=== PATIENT | male | born 1935 | race Caucasian/White ===

== ENCOUNTER → 2017-06-14 | Outpatient (CLI) | payer OTHER | LOC: BMCIMAGING 11:28 | PROVIDERS: ATTEND Internal Medicine | DX: M26.621 Arthralgia of right temporomandibular joint (principal) ==

== ENCOUNTER 2018-07-15 15:13 | Observation (INO) | payer OTHER ==
[2018-07-15] MEDS ORDERED: NS 500 ML IV ONE (15:51)
[2018-07-15 16:02] LABS: PLATELET COUNT 148 10^3/uL (150-400)
[2018-07-15 16:14] LABS: INR 1.1 (0.83-1.16); PROTIME(PATIENT) 14.4 SEC (12.0-15.0)
--- NOTE | 2018-07-15 17:06 | EDPHY ---
H & P Time Seen by Provider: 07/15/18 15:50 HPI/ROS: HPI Sweaty, confused, possible fainting while walking earlier. 83-year-old male by ambulance. This patient reports that he was taking a walk near his house. He reports that he started feeling weak, lightheaded and confused. He reports that he thinks that he fainted but is not sure. He denies any pain from a fall. He does not think he hit his head. He was able to get to a water fountain and get a drink of water. He was then able to get home. He contacted his ex- and told his ex- about this event and was brought to the emergency department. The patient denies any associated chest pain, shortness of breath, headache, palpitations, loss of sensation or weakness in his extremities. ROS: Constitutional: No fever, no chills. As above. Eyes: No discharge. No changes in vision. ENT: No sore throat. No nasal congestion or rhinorrhea. Respiratory: No cough. No shortness of breath. Cardiac: No chest pain, no palpitations. Gastrointestinal: No abdominal pain, no vomiting, no diarrhea. Genitourinary: No hematuria. No dysuria or increased frequency with urination. Musculoskeletal: No back pain. No neck pain. No myalgias or arthralgias. Skin: No rashes. Neurological: No headache. No focal weakness or altered sensation. Past medical history: Gout, left rotator cuff problem, hypothyroid, bilateral knee replacements. Social history: He is . He currently lives in his house alone. He is scheduled to moved to [facility] at the end of the year. He has an ex- who is involved with his care and brought him to the emergency department. No smoking. No alcohol. Physical Exam: General Appearance: Alert, no distress. He does seem somewhat confused any takes a while to gather is thoughts. However, the patient is responding to questions appropriately and in full sentences. This patient appears well- hydrated and well-nourished. Eyes: Pupils equal and round no pallor or injection. No lid edema, erythema or injection. ENT, Mouth: Mucous membranes are moist. The pharyngeal tissues are unremarkable. No edema or swelling. No asymmetry suggestive of abscess. No erythema or exudates. No tongue lacerations or abrasions. Respiratory: There are no retractions, lungs are clear to auscultation with good air movement bilaterally. Cardiovascular: Regular rate and rhythm. No murmur. Gastrointestinal: Abdomen is soft and nontender, no masses, bowel sounds normal. No focal tenderness at McBurney's point. No Maciel sign. Neurological: Motor sensory function is grossly intact. Cranial nerves are normal. Gait is normal. Skin: Warm and dry, no rashes. Musculoskeletal: Neck is supple and nontender. Extremities are symmetrical. All joints range without pain or impingement. Psychiatric: No agitation. No depression. Database: EKG: EKG shows a narrow complex sinus bradycardia with a ventricular rate of 56. The PA, QRS, QT intervals are within normal limits. There are no ST-T wave changes indicative of ischemic or injury pattern. No evidence of right heart strain. No evidence of Brugada syndrome, WPW, hypertrophic cardiomyopathy. Interpreted by me. Imaging: Chest x-ray AP portable: No acute cardiopulmonary disease process noted. Interpreted by me. Procedures: Emergency department course: Triage vital signs reviewed and are normal. IV was placed. He is placed on a envelope stuffer. He was started on IV normal saline with 500 cc to be given over the next hour. An EKG was obtained and reviewed by myself. 5:10 p.m., the patient was re-evaluated, he is resting comfortably at this time. Repeat neurologic Assessment is nonfocal. He still seems somewhat confused. Results of his diagnostic workup were discussed with him. I discussed admission for further evaluation and observation overnight. He is in agreement. Hospitalist paged. 5:15 p.m., spoke with on-call hospitalist Dr. Osullivan. Case discussed with him in detail. He accepts this patient for admission to telemetry. The patient's remaining emergency department course under my care has been uneventful. The patient was admitted in stable condition. Differential Diagnosis: The differential diagnosis on this patient includes but is not limited to syncope, dementia. Arrhythmia, CVA, acute coronary syndrome hypoglycemia, hyponatremia, seizure unlikely. This represents a partial list of diagnoses considered. These considerations are based on history, physical exam, past history, reassessment and diagnostic testing. Smoking Status: Never smoked Constitutional: Initial Vital Signs Temperature (C) 36.4 C 07/15/18 15:24 Heart Rate 61 07/15/18 15:24 Respiratory Rate 16 07/15/18 15:24 Blood Pressure 112/72 07/15/18 15:24 O2 Sat (%) 94 07/15/18 15:24 O2 Delivery Mode Room Air Allergies/Adverse Reactions: MUSCLE RELAXANT Allergy (Intermediate, Uncoded 03/14/10 13:47) DIZZY Home Medications: Medication Instructions Recorded Atorvastatin Calcium [Lipitor 40mg] 1 tab PO DAILY 03/14/10 Levothyroxine [Synthroid 88 mcg 88 mcg PO DAILY 07/15/18 (*)] Medical Decision Making - Diagnostics Imaging Results: Imaging Impressions Chest X-Ray 07/15/18 15:51 Impression: 1. No active cardiopulmonary disease seen. - Data Points Laboratory Results: Laboratory Results 07/15/18 15:55 07/15/18 15:55 07/15/18 07/15/18 07/15/18 15:58 15:55 15:55 WBC RBC Hgb Hct MCV MCH MCHC RDW Plt Count MPV Neut % (Auto) Lymph % (Auto) Stone % (Auto) Eos % (Auto) Baso % (Auto) Nucleat RBC Rel Count Absolute Neuts (auto) Absolute Lymphs (auto) Absolute Monos (auto) Absolute Eos (auto) Absolute Basos (auto) Absolute Nucleated RBC Immature Gran % Immature Gran # PT 14.4 SEC SEC (12.0-15.0) INR 1.10 (0.83-1.16) APTT 23.0 SEC SEC (23.0-38.0) Sodium 138 mEq/L mEq/L (135-145) Potassium 4.4 mEq/L mEq/L (3.5-5.2) Chloride 105 mEq/L mEq/L (97-110) Carbon Dioxide 26 mEq/l mEq/l (22-31) Anion Gap 7 mEq/L mEq/L (6-14) BUN 23 mg/dL mg/dL (7-23) Creatinine 1.0 mg/dL mg/dL (0.7-1.3) Estimated GFR > 60 Glucose 134 mg/dL H mg/dL (70-100) Calcium 8.9 mg/dL mg/dL (8.5-10.4) POC Troponin I 0.01 ng/mL ng/mL (0.00-0.08) NT-Pro-B Natriuret Pep 342 pg/mL pg/mL (0-450) 07/15/18 15:55 WBC 8.26 10^3/uL 10^3/uL (3.80-9.50) RBC 4.96 10^6/uL 10^6/uL (4.40-6.38) Hgb 15.6 g/dL g/dL (13.7-17.5) Hct 47.5 % % (40.0-51.0) MCV 95.8 fL fL (81.5-99.8) MCH 31.5 pg pg (27.9-34.1) MCHC 32.8 g/dL g/dL (32.4-36.7) RDW 13.4 % % (11.5-15.2) Plt Count 148 10^3/uL L 10^3/uL (150-400) MPV 10.9 fL fL (8.7-11.7) Neut % (Auto) 72.1 % % (39.3-74.2) Lymph % (Auto) 17.8 % % (15.0-45.0) Stone % (Auto) 7.0 % % (4.5-13.0) Eos % (Auto) 2.4 % % (0.6-7.6) Baso % (Auto) 0.5 % % (0.3-1.7) Nucleat RBC Rel Count 0.0 % % (0.0-0.2) Absolute Neuts (auto) 5.95 10^3/uL 10^3/uL (1.70-6.50) Absolute Lymphs (auto) 1.47 10^3/uL 10^3/uL (1.00-3.00) Absolute Monos (auto) 0.58 10^3/uL 10^3/uL (0.30-0.80) Absolute Eos (auto) 0.20 10^3/uL 10^3/uL (0.03-0.40) Absolute Basos (auto) 0.04 10^3/uL 10^3/uL (0.02-0.10) Absolute Nucleated RBC 0.00 10^3/uL 10^3/uL (0-0.01) Immature Gran % 0.2 % % (0.0-1.1) Immature Gran # 0.02 10^3/uL 10^3/uL (0.00-0.10) PT INR APTT Sodium Potassium Chloride Carbon Dioxide Anion Gap BUN Creatinine Estimated GFR Glucose Calcium POC Troponin I NT-Pro-B Natriuret Pep Medications Given: Discontinued Medications Sodium Chloride (Ns) 500 mls @ 1,000 mls/hr IV EDNOW ONE PRN Reason: Protocol Stop: 07/15/18 16:20 Last Admin: 07/15/18 16:01 Dose: 500 mls Point of Care Test Results: Chemistry 07/15/18 15:58 POC Troponin I 0.01 ng/mL ng/mL (0.00-0.08) Departure - Departure Disposition: [facility] Inpatient Acute Clinical Impression: Syncope, Confusion Condition: Fair
[2018-07-15] MEDS ORDERED: ACETAMINOPHEN 325 MG TAB PO PRN (18:19)
[2018-07-15] MEDS ORDERED: ONDANSETRON 4 MG/2 ML VIAL IVP PRN (18:19)
[2018-07-15] MEDS ORDERED: ONDANSETRON DISINTEGRATING 4 MG TAB PO PRN (18:19)
--- NOTE | 2018-07-15 19:26 | GHP ---
DATE OF ADMISSION: 07/15/2018 CHIEF COMPLAINT: Dizziness. HISTORY OF PRESENT ILLNESS: This is an 83-year-old male with not a lot in the way of past medical hi story. He was on a walk today and felt off, and felt like he had to sit down because he was feeling dizzy. His memory is not the best in terms of what happened. He does not think that he had a syncop al episode. He does not have any pain or any injuries. Denies any palpitations. No chest pain. No shortness of breath. He felt well before this with no fevers, chills, or urinary symptoms. Denies any melena or abdominal pain. Currently, he feels pretty much back at baseline although thinks he mi ght be a little bit uneasy or feels like he might feel unsteady on his feet. REVIEW OF SYSTEMS: A 10-point review of systems was obtained and other than stated was negative. PAST MEDICAL HISTORY: Hypothyroidism, hyperlipidemia. Medications reviewed. SOCIAL HISTORY: No smoking, 1 alcohol drink per day. His current has Alzheimer's and is in a n ursing home. He is still friendly with his ex-, who brought him in today. FAMILY HISTORY: Reviewed and noncontributory. PHYSICAL EXAMINATION: VITAL SIGNS: Afebrile, blood pressure 120/67, heart rate 66, oxygen saturatio n is 98% on room air. GENERAL: The patient is well developed, in no apparent distress. HEENT: Anicteric sclerae. Extraocular movements intact. Moist mucous membranes. NECK: Supple. N o thyromegaly. LUNGS: Good effort and clear to auscultation bilaterally. CARDIOVASCULAR: Regular rate and rhythm. No murmurs or gallops. ABDOMEN: Positive bowel sounds. Soft, nontender, nondiste nded. No hepatosplenomegaly. EXTREMITIES: No clubbing, cyanosis, or edema. SKIN: Without rash, d ry and intact. NEUROLOGIC: Alert and oriented x3. Cranial nerves 2-12 are intact. He has 5/5 stre ngth in all 4 extremities. PSYCH: Normal affect. LABS: Chemistries essentially all normal except for a slightly elevated blood sugar. CBC is normal, although his platelets are slightly low. Chest x-ray, personally reviewed and interpreted, is pilar l. EKG personally reviewed and interpreted shows normal sinus rhythm, no ischemic changes. ASSESSMENT: This is an 83-year-old male who essentially is presenting with an episode of dizziness. PLAN: It is a little bit concerning that his memory is a little bit off about the event. However, I am not really finding anything objectively on exam or in his labs. I will check a UA. We will keep him on telemetry. Probably worthwhile to check an echocardiogram. We will see how he does overnigh t and how he does with Physical Therapy in the morning and make a decision about further evaluation w ith something like a brain MRI, or consideration for maybe some brain imaging in the morning. /[id number]/MODL
--- NOTE | 2018-07-15 21:01 | CPEKG ---
Test Reason : OPEN Blood Pressure : / mmHG Vent. Rate : 056 BPM Atrial Rate : 056 BPM P-R Int : 179 ms QRS Dur : 110 ms QT Int : 492 ms P-R-T Axes : 060 009 035 degrees QTc Int : 475 ms Sinus rhythm Abnormal R-wave progression, early transition Confirmed by Bereket Jones ([id number]) on 07/15/2018 9:00:55 PM Referred By: PHYSICIAN ED Confirmed By:Bereket Jones
[2018-07-15] MEDS: NS 1,000 ML IV SCH (21:18)
[2018-07-16 05:48] LABS: PLATELET COUNT 126 10^3/uL (150-400)
[2018-07-16] MEDS ORDERED: ATORVASTATIN CALCIUM 40 MG TAB PO SCH (10:15)
[2018-07-16] MEDS ORDERED: LEVOTHYROXINE 88 MCG TAB PO SCH (10:15)
--- NOTE | 2018-07-16 10:56 | ECHO ---
[email or web address] [address] [address] Main: [phone] Fax: Transthoracic Echocardiogram Name: LUCAS FRANK MR#: [id number] Study Date: 07/16/2018 Study Time: 09:12 AM Date of : 1935 Age: 83 year(s) Height: 180.3 cm (71 in.) Weight: 75.75 kg (167 lb.) BSA: 1.95 m2 Gender: Male Examination: Echo Indication: dizziness Image Quality: Adequate Contrast: Requested by: Dejuan Osullivan BP: 126 mmHg/67 mmHg Heart Rate: Rhythm: Indication: dizziness Procedure Staff [place] Operator: Tri Paiz [facility] Reading Physician: Sam Marcano MD Requesting Provider: Conclusions: Normal size left ventricle. Normal global systolic LV function. The ejection fraction is estimated to be 55-60 %. No regional wall motion abnormality. Grade 1 diastolic dysfunction (abnormal relaxation). Mildly dilated right ventricle. Normal RV function. The left atrium is mildly dilated. The right atrium is mildly dilated. 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 There is mild thickening of the mitral valve leaflets. No mitral stenosis is present. There is borderline anterior leaflet prolapse with a posteriorly direted eccentric jet of mild mitral regurgitation. . Mild tricuspid regurgitation is present. The pulmonary artery pressure is mildly increased. Right ventricular systolic pressure measures 38mmHg. Measurements: Chambers Valvular Assessment AV/MV Valvular Assessment TV/PV Normal Normal Normal Name Value Range Name Value Range Name Value Range Ao [place] (2D): 3.3 cm (1.4 cm-2.6 AV Vmax: 1.46 m/s (1 m/s-1.7 TR Vmax: 2.89 mm/s ( - ) cm) m/s) TR PGmax: 33 mmHg ( - ) IVSd (2D): 1.0 cm (0.6 cm-1.1 AV maxP mmHg ( - ) syst. PAP: 38 mmHg ( - ) cm) AV meanP mmHg ( - ) PV Vmax: 0.95 m/s (0.6 m/s-0.9 LVDd (2D): 4.8 cm (4.2 cm-5.9 MADI (VTI): 2.2 cm ( - ) m/s) cm) MV E Vmax: 0.66 m/s ( - ) PV PGmax: 4 mmHg ( - ) LVDs (2D): 3.1 cm (2.1 cm-4 MV A Vmax: 0.74 m/s ( - ) cm) MV E/A: 0.89 ( - ) Patient: LUCAS FRANK Study Date: 07/16/2018 Page 1 of 3 09:12 AM LVPWd (2D): 1.1 cm (0.6 cm-1 MV PHT: 0.094 s ( - ) cm) MVA (PHT): 2.3 s ( - ) LVOTd 2.1 cm 2.1 cm mm EF Range: 55-60 % RVDd(2D): 2.9 cm (1.9 cm-3.8 cmmm) Continued Measurements: Chambers Valvular Assessment AV/MV Valvular Assessment TV/PV Name Value Name Value Name Value LADs: 3.7 cm MV DecTime: 292 m/s CVP (est.): 5 mmHg LADs Lon.9 cm MV E' Septal: 0.07 m/s LA Area: 23.4 cm2 MV E/E' Septal: 9.00 LA Volume: 71 ml MV E/E' Lateral: 7.40 LA Volume Index: 36.4 ml/m2 RA Area: 21.3 cm2 Additional Vessels Name Value Ao Ascendin.7 cm Inferior Vena Cava: 1.5 cm Findings: Left Ventricle: Normal size left ventricle. No LV hypertrophy. Normal global systolic LV function. The ejection fraction is estimated to be 55-60 %. No regional wall motion abnormality. Grade 1 diastolic dysfunction (abnormal relaxation). Right Ventricle: Mildly dilated right ventricle. Normal RV function. Left Atrium: The left atrium is mildly dilated. Normal appearing atrial septum. Right Atrium: The right atrium is mildly dilated. 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 Mitral Valve: There is mild thickening of the mitral valve leaflets. No mitral stenosis is present. There is borderline anterior leaflet prolapse with a posteriorly direted eccentric jet of mild mitral regurgitation. . Aortic Valve: The aortic valve is tri-leaflet. Aortic sclerosis is present. Trivial aortic valve regurgitation. No aortic valve stenosis is present. Tricuspid Valve: The tricuspid valve is normal in appearance and function. Mild tricuspid regurgitation is present. The pulmonary artery pressure is mildly increased. Right ventricular systolic pressure measures 38mmHg. Pulmonic Valve: The pulmonic valve is normal in appearance and function. Trivial pulmonic valve regurgitation. Aorta: The aorta is normal. Normal size aortic root measuring 3.3 cm. Normal size ascending aorta measuring 3.7 cm. IVC: The IVC is normal sized. Pericardium: No pericardial effusion. No pleural effusion. (No Signature Object) Patient: LUCAS FRANK Study Date: 07/16/2018 Page 2 of 3 09:12 AM Patient: LUCAS FRANK Study Date: 07/16/2018 Page 3 of 3 09:12 AM [id number]
[2018-07-16] MEDS: NS 1,000 ML IV SCH (11:23)
[2018-07-16 12:26] VITALS: BP 139/70
--- NOTE | 2018-07-16 12:43 | GDS ---
DISCHARGE DIAGNOSIS: Dizziness. STUDIES/PROCEDURES: Echocardiogram. PHYSICAL EXAM: GENERAL: The patient is alert. VITAL SIGNS: Afebrile at 36.6, pulse 58, respirator y rate 20, blood pressure is 126/67. He is saturating 93% on room air. I have seen and evaluated th e patient on the day of discharge. HOSPITAL COURSE: The patient is an 83-year-old male who presented to the emergency room after having episode of dizziness. He tells me that yesterday he was taking a walk with intermittent jogging. H e states he would jog 25 to 30 yards and then walk. He said that during this jogging, he became dizz y and had to sit down. He was admitted the hospital for further evaluation. He did receive an echoc ardiogram, which I have reviewed with Dr. Marcano of Cardiology. No significant abnormalities have been identified. He was placed on telemetry with no abnormalities watched during this hospitalization. He has returned to his baseline and feels significantly better. The etiology of his symptoms are unc lear. He will be discharged home to follow upin the outpatient setting with his primary care Dr. Toya peck. PENDING STUDIES: There are no pending studies. DISCHARGE MEDICATIONS: Please refer to EMR form. I have not adjusted any of the patient's previousl y prescribed home medications. /[id number]/MODL
--- NOTE | 2018-07-16 22:17 | ASMTCMCOM ---
CM Note CM Note Notes: Reviewed chart, spoke with Zuleyka Martinez NP. Pt admitted following an episode of dizziness while jogging yesterday. History includes hypothyroid and hyperlipidemia. Pt is , but lives alone. His is currently in a shelter in [place] secondary to Alzheimer's dx. Pt is friendly with his ex- Viviana. He also has two children, a dghtr in [place] and a son in [place]. Per DIRECTOR SECURITY RISK MANAGEMENT, pt to discharge home independently today with no identified needs. Met with pt to discuss discharge. Pt became tearful when talking about his children. Pt reports recently losing his eldest son in February. Pt also reports struggling with his current 's dx. Emotional support provided. Pt given a [facility] Blue Book for resources on Grief, Alzheimer's support groups and [facility]. IM/HEATHER forms signed, copy placed in chart. Call received from pt's son, Ryoal . Minimal updates provided due to HIPPA. Encouraged son to call pt at home later today. Pt called friend Vinnie Moody for ride home. Pt to follow up as directed this week with Dr. Pittman. CM available for any further issues or concerns. Discharge Plan: Home independently Date Signed: 07/16/2018 10:17 PM Electronically Signed By:Jessica Hart RN
--- NOTE | 2018-07-16 22:17 | ASDISCHSUM ---
Discharge Information Plan Status:Home with No Needs Medically Cleared to Leave:07/15/2018 Discharge Date:07/16/2018 01:17 PM CM D/C Disposition:Home, Routine, Self-Care ADT D/C Disposition:Home, Routine, Self-Care Projected Discharge Date:07/16/2018 01:17 PM Transportation at D/C:Friend Discharge Delay Reason: Follow-Up Date:07/16/2018 01:17 PM Discharge Slot:1 - 8:01 am - 12:00 noon Final Diagnosis:Pre-syncope, dizziness Placement Information Patient Contact Information Contact Name:RENY Relationship:Other Address: Work Phone: City: [facility] Phone: State/[employer] Code: Email: Financial Information Financial Class:Medicare Primary Plan Desc:MEDICARE OUTPATIENT Primary Plan Number:[id number] Secondary Plan Desc: Secondary Plan Number:[id number] Assessment Information [facility] CM Progress Note CM Note CM Note Notes: Reviewed chart, spoke with Zuleyka Martinez NP. Pt admitted following an episode of dizziness while jogging yesterday. History includes hypothyroid and hyperlipidemia. Pt is , but lives alone. His is currently in a half-way in [place] secondary to Alzheimer's dx. Pt is friendly with his ex- Viviana. He also has two children, a dghtr in [place] and a son in [place]. Per COMMERCIAL PLUMBER, pt to discharge home independently today with no identified needs. Met with pt to discuss discharge. Pt became tearful when talking about his children. Pt reports recently losing his eldest son in February. Pt also reports struggling with his current 's dx. Emotional support provided. Pt given a [facility] [employer] Book for resources on Grief, Alzheimer's support groups and [facility]. IM/ROMERO forms signed, copy placed in chart. Call received from pt's son, Royal . Minimal updates provided due to HIPPA. Encouraged son to call pt at home later today. Pt called friend Vinnie Moody for ride home. Pt to follow up as directed this week with Dr. Pittman. CM available for any further issues or concerns. Discharge Plan: Home independently Date Signed: 07/16/2018 10:17 PM Electronically Signed By:Jessica Hart RN Intervention Information Intervention Type:*IM-Signed Date of Service:07/16/2018 12:00 PM Patient Type:Observation Staff Member:RACHAEL Hart Taylor Hours: Discipline: Severity: Comment: Intervention Type:*ROMERO-Signed Date of Service:07/16/2018 12:00 PM Patient Type:Observation Staff Member:RACHAEL Hrat Taylor Hours: Discipline: Severity: Comment: Intervention Type:Emotional Support Date of Service:07/16/2018 12:00 PM Patient Type:Observation Staff Member:RACHAEL Hart Taylor Hours:0.5 Discipline: Severity: Comment:Provided support to pt regarding ' s Alzheimer's dx and recent loss of son.
== END 2018-07-16 13:17 | disposition home or self-care (01) ==
LOC: F3E 17:59
PROVIDERS: ADMIT Internal Medicine; ATTEND Internal Medicine
DX: R55 Syncope and collapse (principal); R42 Dizziness and giddiness; R41.0 Disorientation, unspecified; M10.9 Gout, unspecified; E03.9 Hypothyroidism, unspecified; Z96.653 Presence of artificial knee joint, bilateral; E78.5 Hyperlipidemia, unspecified; E86.0 Dehydration
CPT/HCPCS: 71045; 93005; 93306; 97116; 97161; 97165; G0378; 84484-ER

== ENCOUNTER → 2018-11-04 | Outpatient (CLI) | payer OTHER | LOC: FIMAGING 15:55 | PROVIDERS: ATTEND Internal Medicine | DX: M85.672 Other cyst of bone, left ankle and foot (principal); M19.072 Primary osteoarthritis, left ankle and foot ==